=== PATIENT | male | born 1980 | race Two or more races ===

== ENCOUNTER 2017-11-10 05:22 | Inpatient (IN) | payer OTHER ==
[~2017-11-10] VITALS: Ht 175.3 cm; Wt 87.1 kg
[2017-11-10] VITALS (14 sets, daily range): BP systolic 107–130; BP diastolic 68–87
[~2017-11-10 05:22] MED LIST: ACETAMINOPHEN-1 EAC1 ORAL
[2017-11-10] MEDS ORDERED: Lidocaine 1% 10mg/ml/EPI 0.01mg/ml 50ml INJ ONE ×2 (07:00→07:10)
[2017-11-10] MEDS ORDERED: Thrombin 5000 units spray kit TOPIC ONE ×2 (07:00→07:10)
[2017-11-10] MEDS ORDERED: fentaNYL 100 mcg/2 mL IV ONE (07:00)
[2017-11-10] MEDS ORDERED: Bacitracin 50000 Units Vial IRRIG ONE (07:00)
[2017-11-10] MEDS ORDERED: Gelfoam Absorbable 1gm powder pkt TOPIC ONE ×2 (07:00→07:10)
[2017-11-10] MEDS ORDERED: Zemuron 50mg/5ml Inj IV ONE (07:00)
[2017-11-10] MEDS ORDERED: Midazolam 2mg/2ml Inj ONE (07:00)
[2017-11-10] MEDS ORDERED: Thrombin 5000 units TOPIC ONE ×2 (07:00→07:09)
[2017-11-10] MEDS ORDERED: NS Irrig 1000ml ONE (07:00)
[2017-11-10] MEDS ORDERED: Sodium Chloride 10ml vial INJ ONE (07:00)
[2017-11-10] MEDS ORDERED: Sterile Water Irrig 1000ml IRRIG ONE (07:00)
[2017-11-10] MEDS ORDERED: LR 1000ml ONE (07:00)
[2017-11-10] MEDS ORDERED: Propofol 200mg/20ml IV ONE (07:00)
[2017-11-10] MEDS ORDERED: Bupivacaine 0.5% Inj 30 ml vial INJ ONE (07:10)
[2017-11-10] MEDS ORDERED: Bacitracin 50000 Units Vial ONE (07:10)
--- NOTE | 2017-11-10 07:12 | Pre-Procedure Note/Attestation ---
Pre-Procedure Note/Attestation Complete Prior to Procedure Planned Procedure: left Procedure Narrative: Foraminal Stenosis Left L5/S1 Foramen. For Left L5/S1 Foraminotomy. Attestation I attest that I discussed the nature of the procedure; its benefits; risks and complications; and alternatives (and the risks and benefits of such alternatives ), prior to the procedure, with the patient (or the patient's legal in store marketing representative). I attest that, if there was a reasonable possibility of needing a blood transfusion, the patient (or the patient's legal in store marketing representative) was given the [facility] standardized written summary, pursuant to the Jaspreet Earline Blood Safety Act ([place] Health and Safety Code # 1645, as amended). I attest that I re-evaluated the patient just prior to the surgery and that there has been no change in the patient's H&P, except as documented below: JOSE ALFREDO CARPENTER Nov 10, 2017 07:12
[2017-11-10] MEDS ORDERED: LR 1000ml 1,000 ML IVLG SCH (08:25)
[2017-11-10] MEDS ORDERED: DiphenhydrAMINE 50mg/ml Inj IVP PRN (08:30)
[2017-11-10] MEDS ORDERED: Hydromorphone 0.5mg/0.5ml inj IVP PRN (08:30)
[2017-11-10] MEDS ORDERED: LORazepam Inj 2mg/ml 1ml IV PRN (08:30)
[2017-11-10] MEDS ORDERED: Meperidine 50mg/ml Inj(FOR RIGORS ONLY) IVP ONE (08:30)
[2017-11-10] MEDS ORDERED: LR 1000ml 1,000 ML IV SCH (08:30)
--- NOTE | 2017-11-10 08:30 | Anethesia Preoperative Eval ---
Anesthesia Pre-op PMH/ROS General Date of Evaluation: Nov 10, 2017 Time of Evaluation: 07:15 Anesthesiologist: Wing ASA Score: ASA 1 Mallampati Score Class I : Soft palate, uvula, fauces, pillars visible Class II: Soft palate, uvula, fauces visible Class III: Soft palate, base of uvula visible Class IV: Only hard plate visible Mallampati Classification: Class II Surgeon: Urszula Diagnosis: Back pain Surgical Procedure: Foraminotomy L4-5 Family History: no anesthesia problems Allergies: Uncoded Allergies: seafoods (Allergy, Severe, "cant breath", 11/07/17) Medications: see eMAR Past Medical History Cardiovascular: Denies: HTN, CAD, NM, valve dz, arrhythmia, other Pulmonary: Denies: asthma, COPD, MAGEN, other Gastrointestinal/Genitourinary: Denies: GERD, CRI, ESRD, other Neurologic/Psychiatric: Denies: dementia, CVA, depression/anxiety, TIA, other Endocrine: Denies: DM, hypothyroidism, steroids, other HEENT: Denies: cataract (L), cataract (R), glaucoma, [place] (L), [place] (R), other Hematology/Immune: Denies: anemia, DVT, bleeding disorder, other Musculoskeletal/Integumentary: Denies: OA, RA, DJD, DDD, edema, other PMH Narrative: Denies significant PMH PSxH Narrative: Knee scope Anesthesia Pre-op Phys. Exam Physician Exam Last Vital Signs Date Time Temp Pulse Resp B/P (MAP) Pulse Ox O2 Delivery O2 Flow Rate FiO2 11/10/17 06:02 97.7 76 20 130/87 97 Room Air Constitutional: NAD Neurologic: CN 2-12 intact Cardiovascular: RRR, no M/R/G Respiratory: CTA Gastrointestinal: S/NT/ND Airway Exam Mallampati Score: Class II MO: full ROM: full Teeth: intact Anesthesia Pre-op A/P Labs WNL Studies Pre-op Studies: EKG - NSR Risk Assessment & Plan Assessment: Healthy male for L4-5 foraminotomy. Plan: GETA, SedLine monitor Status Change Before Surgery: No Pre-Antibiotics Drug: Ancef Given Within 1 Hr of Incision: Yes Time Given: 07:45 DIVYA KING M.D. Nov 10, 2017 08:30
--- NOTE | 2017-11-10 08:31 | Immediate Post-Op Evaluation ---
Immediate Post-Op Evalulation Immediate Post-Op Evalulation Procedure: Foraminotomy L4-5 (as per Dr. Seaman) Date of Evaluation: Nov 10, 2017 Time of Evaluation: 09:30 IV Fluids: 1000 Estimated Blood Loss: 30 Blood Pressure Systolic: 116 Blood Pressure Diastolic: 76 Pulse Rate: 82 Respiratory Rate: 13 O2 Sat by Pulse Oximetry: 99 Temperature (Fahrenheit): 99.4 Pain Score (1-10): 0 Nausea: No Vomiting: No Complications No complication Patient Status: reacts, patent, extubated, none Hydration Status: adequate Drug: Ancef Given Within 1 Hr of Incision: Yes Time Given: 07:45 DIVYA KING M.D. Nov 10, 2017 08:31
[2017-11-10] MEDS ORDERED: traMADol 50mg tab ORAL PRN (09:15)
--- NOTE | 2017-11-10 09:28 | Operative Note - PDOC ---
Operative Note Operative Note Chief Complaint: Left leg pain Pre-op Diagnosis: Foraminal stenosis Left L4-5. Procedure: Left L4-L5 foraminotomy Post-op Diagnosis: same as pre-op Operative Findings: consistent w/pre-op dx studies Surgeon: Urszula Lockstitch Front Edge Tape Sewer: MARCIA Carpenter Anesthesiologist: Wing Anesthesia: general Specimen: yes Complications: none Condition: stable Estimated Blood Loss: minimal Drains: none Implant(s) used?: No Description of Procedure It was noted that there are six lumbar vertebras in this patient. The MRI findings and selective nerve root block results match patients symptoms , the operative level was Lumbar four - five. The patient will be made aware of the clarification. JOSE ALFREDO CARPENTER Nov 10, 2017 09:28
[2017-11-10] MEDS ORDERED: Norco 5mg/325mg tab ORAL PRN (12:30)
[2017-11-10] MEDS ORDERED: HYDROmorphone 1mg/ml Carpuject SUBQ PRN (12:30)
[2017-11-10] MEDS ORDERED: HYDROcodone/Acetamin 7.5/325 tab ORAL PRN ×2 (12:30)
[2017-11-10] MEDS ORDERED: Acetaminophen 650 MG SUPP RECTAL PRN (12:30)
[2017-11-10] MEDS ORDERED: Naloxone 0.4mg/ml Inj IVP PRN (12:30)
--- NOTE | 2017-11-10 12:45 | Diagnostic Imaging Report ---
Indication: Low back pain and left lower extremity pain, intraoperative Technique: Intraoperative images Comparison: none Findings: Single lateral localizer image demonstrates a surgical tool projected 2 arteries presumably the L4-5 disc. A second surgical tool projects posterior to L4. Impression: Intraoperative imaging, as described
[2017-11-10] MEDS ORDERED: ceFAZolin sod 1 GM in D5W 55 ML IV SCH (15:30)
[2017-11-10] MEDS: ceFAZolin 1gm/50ml Premix 50 ML IV SCH ×2 (15:50→23:47)
[2017-11-10] MEDS: Docusate Sod/Senna tab ORAL SCH (17:36)
[2017-11-10] MEDS: HYDROmorphone 1mg/ml Carpuject IVP PRN (18:49)
--- NOTE | 2017-11-10 21:00 | Operative Note - Dictated ---
DATE OF OPERATION: 11/10/2017 SURGEON: Chadwick Seaman M.D. [employer]ACH[employer]ES: SUKHDEV Gallegos. ANESTHESIOLOGIST: Dr. Dimas. ANESTHESIA: General endotracheal and arterial blood pressure monitoring. PREOPERATIVE DIAGNOSIS: Lumbar radiculopathy due to irritation of the L4 and L5 roots at the L4-L5 interval on the left side, the level could be identified as L5/S1 also as the patient has mobile lumbar segments. POSTOPERATIVE DIAGNOSIS: Lumbar radiculopathy due to irritation of the L4 and L5 roots at the L4-L5 interval on the left side, the level could be identified as L5/S1 also as the patient has mobile lumbar segments. OPERATIVE PROCEDURE: Semi-hemilaminotomy and undercutting facetectomy at L4-L5 with release of the traversing L5 and the exiting L4 root with microneurolysis and minimal disk excision. The patient had evidence of lateral recess and foraminal stenosis causing irritation of the exiting L4 root at the L4-L5 interval as well as lateral recess tightening and a small disk bulge causing pressure on the traversing L5 root. A selective nerve root block had been effective in temporarily eliminating the patient's leg pain at the L5 level. The patient was anesthetized in supine position and turned prone, placed on a Abran frame. His knees and hips were flexed gently and well padded. His head and neck were placed in the board with protection over his eyes. A brachial roll was used as well to protect his arms. His forearms were well padded at the ulnar nerve. A lateral x-ray was taken to identify the level of skin incision. The patient was then marked and prepped and draped freely. A 1-inch incision was made longitudinally between the spinous process of L4 and L5. The incision was carried down through skin and subcutaneous tissue to the extensor fascia, which was divided on the left of the spinous processes of L4 and L5. The paraspinous muscle was removed with cautery and a Cruz elevator. The muscle was brought out lateral to the facet at the L4-L5 level. A self-retaining retractor was then positioned catching the interspinous ligament centrally and the paraspinous muscles laterally exposing the interval between the lamina of L4 and L5. An x-ray was taken with a curette placed to confirm placement. A small angled curette was then used to release the ligament from the trailing edge of the lamina of L4 and from the leading edge of L5. The facet was also cleared both superiorly and inferiorly into the lateral recess. A Midas with an AMA bur was then used with a pad in place to do a semi-hemilaminotomy of L4 and L5 and to do an undercutting facetectomy to clear the lateral recess. Only about 5 mm of the inner wall of the facet was removed leaving it structurally intact. The nerve root was quite inflamed with surrounding epidural vessels, which were coagulated. The root was freed proximally and distally of both L4 and L5. The dural sac was identified and probed underneath as far as the midline there was a small prominence of disk laterally, which was shrunken with heat, both bipolar and cautery. It was not necessary to incise the disk, which looked fairly healthy on MRI and plain film with good maintenance of disk height. The exit of the L5 root was carefully checked. Gelfoam-soaked patties were placed over the open laminotomy. The muscle and fascial layer was closed with #1 Vicryl sutures. The subcutaneous and skin were closed separately. Blood loss was estimated at 50 mL. The patient was placed in a bulky compression dressing and returned to recovery room in good condition. Chadwick Seaman M.D. DR: ALEKSANDER JOB#: [id number] CC: FRANCESCO
[2017-11-11] VITALS: BP 113/70
[2017-11-11 03:51] VITALS: BP 116/73
[2017-11-11] MEDS: HYDROmorphone 1mg/ml Carpuject IVP PRN (06:17)
[2017-11-11] MEDS: ceFAZolin 1gm/50ml Premix 50 ML IV SCH (07:35)
[2017-11-11 08:00] VITALS: BP 128/85
[2017-11-11] MEDS: Docusate Sod/Senna tab ORAL SCH ×2 (09:06→17:47)
[2017-11-11 12:00] VITALS: BP 124/79
--- NOTE | 2017-11-11 14:25 | 48 Hour Post Anesthesia Eval ---
Post Anesthesia Evaluation Procedure: Foraminotomy L4-5 (as per Dr. Seaman) Date of Evaluation: Nov 11, 2017 Time of Evaluation: 06:58 Blood Pressure Systolic: 116 0: 73 Pulse Rate: 100 Respiratory Rate: 17 Temperature (Fahrenheit): 98 O2 Sat by Pulse Oximetry: 97 Airway: patent Nausea: No Vomiting: No Pain Intensity: 3 Hydration Status: adequate Cardiopulmonary Status: Stable Mental Status/LOC: patient returned to baseline Follow-up Care/Observations: 0 Post-Anesthesia Complications: 0 Follow-up care needed: N/A Raffy Slade MD Nov 11, 2017 14:25
[2017-11-11] MEDS ORDERED: Dexamethasone 4mg/ml vial IVP ONE (15:45)
[2017-11-11 16:00] VITALS: BP 122/76
[2017-11-11 20:00] VITALS: BP 113/77
[2017-11-12] VITALS: BP 109/65
[2017-11-12 04:00] VITALS: BP 105/76
[2017-11-12] MEDS: Docusate Sod/Senna tab ORAL SCH ×2 (08:38→17:53)
[2017-11-12 08:39] VITALS: BP 119/77
--- NOTE | 2017-11-12 10:28 | General Surgery Progress Note ---
General Surgery-Progress Note Subjective Procedure Performed Left L4-L5 foraminotomy Chief Complaint: Low back sore, but slightly improved. Left leg with less pain than pre-op Symptoms: improved Objective Last 24 Hour Vital Signs Date Time Temp Pulse Resp B/P (MAP) Pulse Ox O2 Delivery O2 Flow Rate FiO2 11/12/17 08:39 97.9 78 20 119/77 97 11/12/17 04:00 98.2 73 18 105/76 96 11/12/17 00:00 98.0 69 17 109/65 94 Room Air 11/11/17 20:00 98.5 88 18 113/77 94 Room Air 11/11/17 16:00 97.0 82 26 122/76 97 Room Air 11/11/17 14:25 100 17 97 11/11/17 12:00 97.8 94 19 124/79 96 Room Air I&O Intake and Output 11/11/17 11/12/17 19:00 07:00 Intake Total 800 ml 1250 ml Output Total 1175 ml Balance 800 ml 75 ml Intake Oral 250 ml IV Total 800 ml 1000 ml Output Urine Total 1175 ml # Voids 5 Dressing: dry Wound: clean Drains: none Additional Comments Patient exam, wound clean and dry, strength 5/5 both lower legs, sensory intact Assessment Additional Comments Patient improving, moving very slowly. Left leg is less painful. Dr. Hollis to follow. JOSE ALFREDO CARPENTER Nov 12, 2017 10:28
--- NOTE | 2017-11-12 10:38 | General Progress Note ---
Assessment/Plan Assessment/Plan Left L4-L5 foraminotomy lumbar radiculopathy PLAN 1. incentive spirometry 2. DVT prophylaxis 3. PT evaluation and therapy 4. Hydration 5. Pain management 6. discharge once stable with outpatient follow up Subjective Allergies: Coded Allergies: IODINE (Verified Allergy, Severe, "CAN'T BREATHE", 11/10/17) SEAFOODS-COPIED FROM UNCODED SECTION Subjective ASKED TO FOLLOW MEDICALLY Objective Last 24 Hour Vital Signs Date Time Temp Pulse Resp B/P (MAP) Pulse Ox O2 Delivery O2 Flow Rate FiO2 11/12/17 08:39 97.9 78 20 119/77 97 11/12/17 04:00 98.2 73 18 105/76 96 11/12/17 00:00 98.0 69 17 109/65 94 Room Air 11/11/17 20:00 98.5 88 18 113/77 94 Room Air 11/11/17 16:00 97.0 82 26 122/76 97 Room Air 11/11/17 14:25 100 17 97 11/11/17 12:00 97.8 94 19 124/79 96 Room Air Intake and Output 11/11/17 11/12/17 19:00 07:00 Intake Total 800 ml 1250 ml Output Total 1175 ml Balance 800 ml 75 ml Intake Oral 250 ml IV Total 800 ml 1000 ml Output Urine Total 1175 ml # Voids 5 Height (Feet): 5 Height (Inches): 9.00 Weight (Pounds): 192 Objective WDWN NAD clear breath sounds bilaterally without rhonchi or wheeze [id number] without MRG NABS nontender no HSM no CCE left leg pain HILARIA DU Nov 12, 2017 10:38
[2017-11-12 11:42] VITALS: BP 115/65
[2017-11-12 15:54] VITALS: BP 118/73
[2017-11-12 20:08] VITALS: BP 124/81
[2017-11-13 00:27] VITALS: BP 111/74
[2017-11-13 04:25] VITALS: BP 115/80
[2017-11-13 08:00] VITALS: BP 117/81
--- NOTE | 2017-11-13 08:23 | General Progress Note ---
Assessment/Plan Assessment/Plan Left L4-L5 foraminotomy lumbar radiculopathy PLAN 1. incentive spirometry 2. DVT prophylaxis 3. PT evaluation and therapy 4. Hydration 5. Pain management 6. discharge today Subjective Allergies: Coded Allergies: IODINE (Verified Allergy, Severe, "CAN'T BREATHE", 11/10/17) SEAFOODS-COPIED FROM UNCODED SECTION Subjective stable taking po and able to ambulate Objective Last 24 Hour Vital Signs Date Time Temp Pulse Resp B/P (MAP) Pulse Ox O2 Delivery O2 Flow Rate FiO2 11/13/17 04:25 98.2 78 18 115/80 95 11/13/17 00:27 98.4 70 19 111/74 94 11/12/17 20:08 98.4 76 17 124/81 95 11/12/17 15:54 98.3 84 20 118/73 100 11/12/17 11:42 97.9 85 20 115/65 100 11/12/17 08:39 97.9 78 20 119/77 97 Intake and Output 11/12/17 11/13/17 19:00 07:00 Intake Total 1680 ml Balance 1680 ml Intake Oral 1080 ml IV Total 600 ml # Voids 3 Height (Feet): 5 Height (Inches): 9.00 Weight (Pounds): 192 Objective WDWN NAD clear breath sounds bilaterally without rhonchi or wheeze [id number] without MRG NABS nontender no HSM no CCE left leg pain HILARIA DU Nov 13, 2017 08:23
[2017-11-13] MEDS: Docusate Sod/Senna tab ORAL SCH (09:00)
--- NOTE | 2017-11-13 10:22 | General Surgery Progress Note ---
General Surgery-Progress Note Subjective Procedure Performed Left L4-L5 foraminotomy Symptoms: improved Additional Comments Patient reports less back and left leg pain. Objective Last 24 Hour Vital Signs Date Time Temp Pulse Resp B/P (MAP) Pulse Ox O2 Delivery O2 Flow Rate FiO2 11/13/17 08:00 98.2 63 19 117/81 98 11/13/17 04:25 98.2 78 18 115/80 95 11/13/17 00:27 98.4 70 19 111/74 94 11/12/17 20:08 98.4 76 17 124/81 95 11/12/17 15:54 98.3 84 20 118/73 100 11/12/17 11:42 97.9 85 20 115/65 100 I&O Intake and Output 11/12/17 11/13/17 18:59 06:59 Intake Total 1680 ml Balance 1680 ml Intake Oral 1080 ml IV Total 600 ml # Voids 3 Wound: clean Drains: none Additional Comments Strength both legs 5/5 Dressing wet with serious fluid, changed. After care discussed. Has medications and follow up appointment. Dr. Hollis following. Ready for discharge from orthopedic standpoint. JOSE ALFREDO CARPENTER Nov 13, 2017 10:22
[2017-11-13 12:00] VITALS: BP 115/77
--- NOTE | 2017-11-14 12:50 | Discharge Summary ---
Discharge Summary Hospital Course Date of Admission Nov 10, 2017 at 05:22 Date of Discharge Nov 13, 2017 at 12:15 Admitting Diagnosis HPI Drew Babcock is a 37 year old male who was admitted on Nov 10, 2017 at 05: 22 for Back Pain Hospital Course [id number] Discharge Discharge Disposition Patient was discharged to Home (01) Discharge Diagnoses: Kate Garcia NP Nov 14, 2017 12:50
--- NOTE | 2017-11-15 04:30 | Discharge Summary 2 SIG ---
DATE OF ADMISSION: 11/10/2017 DATE OF DISCHARGE: 11/13/2017 SURGEON: Chadwick Seaman M.D. BRIEF HOSPITAL COURSE: The patient is a 37-year-old male, who was injured while working lifting heavy boxes. Date of injury was 09/30/2014. As a result, he injured his lower back and notes radiation of pain into both legs. He underwent epidural injections x4 and physical therapy with temporary relief. Symptoms waxes and wanes. He reported continued pain on standing, walking, and sitting. He was admitted on 11/10/2017 and underwent left L4-L5 foraminotomy by Dr. Seaman. Postoperatively, he was given pain management and IV hydration. He was encouraged use of incentive spirometry. He was placed on SCDs for DVT prophylaxis. He underwent PT and OT. Diet was advanced. He was ambulating well and eating well with good pain control and reported less back and leg pain. Motor strength 5/5 in both legs. Dressing was changed. He was eventually cleared for discharge home to follow up with Orthopedic as outpatient. FINAL DIAGNOSIS: Lumbar radiculopathy, status post left L4-L5 foraminotomy. DISPOSITION: The patient was discharged home. DISCHARGE MEDICATIONS: Continue with Tylenol No. 3 p.r.n. pain. DISCHARGE INSTRUCTIONS: Keep incision clean and dry. No heavy lifting. FOLLOWUP: Follow up with Surgery in a week. Benedict Hollis M.D. I have been assigned to dictate discharge summary on this account and I was not involved in the patient's management. Kate Garcia N.P. DR: Jb JOB#: [id number] CC: FRANCESCO
== END 2017-11-13 12:15 | disposition home or self-care (01) | DRG 517 ==
LOC: SDSOVERFLO 05:22 → 3E 11:10
PROC: 01NB0ZZ Release Lumbar Nerve, Open Approach (ICD-10-PCS; principal; 2017-11-10 07:30)
DX: M51.16 Intervertebral disc disorders with radiculopathy, lumbar region (principal)
CPT/HCPCS: 36415; 72020; 76001; 86850; 86900; 86901; 87081; 94003; 94150; C9399; J2250; J2405